=== PATIENT | male | born 1955 | race Caucasian/White ===

== ENCOUNTER 2022-04-17 07:53 | Day surgery (SDC) | payer MEDICARE, MEDICAID ==
[~2022-04-17] VITALS: Ht 180.3 cm; Wt 100.6 kg
[2022-04-17] VITALS (11 sets, daily range): BP systolic 104–154; BP diastolic 60–94
[2022-04-17] MEDS ORDERED: diphenhydrAMINE 25mg capsule PO PRN (08:40)
[2022-04-17] MEDS ORDERED: normal saline 1,000 ML IV SCH (08:40)
[2022-04-17] MEDS ORDERED: TORS100T15 PO (08:49)
[2022-04-17] MEDS ORDERED: METO25TA6 PO (08:49)
[2022-04-17] MEDS ORDERED: INSU100I31 SQ (08:49)
[2022-04-17] MEDS ORDERED: FERR-119 PO (08:49)
[2022-04-17] MEDS ORDERED: INSU100I45 SQ (08:49)
[2022-04-17] MEDS ORDERED: CHOL500050 PO (08:49)
[2022-04-17] MEDS ORDERED: LEVO50TA8 PO (08:49)
[2022-04-17] MEDS ORDERED: GABA300C PO (08:49)
[2022-04-17] MEDS ORDERED: OMEP20CA16 PO (08:49)
[2022-04-17] MEDS ORDERED: DOCU240C PO (08:52)
[2022-04-17] MEDS ORDERED: ASPI-1071 PO (08:52)
[2022-04-17 09:18] LABS: BASOPHILS # (AUTO) 0.1 X10'3 (0-0.2); BASOPHILS % (AUTO) 1.2 % (0-1); EOSINOPHILS # (AUTO) 0.3 X10'3 (0-0.9); EOSINOPHILS % (AUTO) 3.7 % (0-6); HEMATOCRIT 39.5 % (42.0-52.0); HEMOGLOBIN 13.8 g/dl (14.0-17.9); LYMPHOCYTES # (AUTO) 2.3 X10'3 (1.1-4.8); LYMPHOCYTES % (AUTO) 27.4 % (21-51); MEAN CORPUSCULAR HEMOGLOBIN 27.7 PG (27.0-31.0); MEAN CORPUSCULAR VOLUME 79.2 FL (78-98); MEAN PLATELET VOLUME 7.5 FL (7.4-10.4); MONOCYTES # (AUTO) 0.4 X10'3 (0-0.9); MONOCYTES % (AUTO) 4.7 % (2-12); NEUTROPHILS # (AUTO) 5.4 X10'3 (1.8-7.7); PLATELET COUNT 262 X10'3 (140-440); RED BLOOD COUNT 4.99 X10'6 (4.70-6.10); RED CELL DISTRIBUTION WIDTH 14.1 % (11.5-14.5); WHITE BLOOD COUNT 8.5 X10'3 (4.5-11.0)
[2022-04-17 09:44] LABS: ALBUMIN 2.2 G/DL (3.4-5.0); BLOOD UREA NITROGEN 71 MG/DL (7-18); BUN/CREATININE RATIO 25.2 (5.4-32.0); CREATININE 2.82 MG/DL (0.60-1.10); MAGNESIUM 1.9 MG/DL (1.5-2.4); TOTAL CARBON DIOXIDE 24.9 MMOL/L (24-32); eGFR 23 ML/MIN
[2022-04-17 09:56] LABS: SODIUM 126 MMOL/L (135-145)
[2022-04-17 09:57] LABS: ANION GAP 12 (8-16); CHLORIDE 89 MMOL/L (99-107); POTASSIUM 4.2 MMOL/L (3.5-5.1)
[2022-04-17 09:58] LABS: GLUCOSE 501 MG/DL (70-104)
[2022-04-17] MEDS ORDERED: dextrose 50%-water 50ml dispensing syringe IV PRN ×2 (11:00)
[2022-04-17] MEDS ORDERED: DEXTROSE 15 GM of carb/4 tabs (each vial/BOTTLE has 4 tablets) PO PRN ×2 (11:00)
[2022-04-17] MEDS ORDERED: insulin Lispro (HumaLOG) vial - multi-dose SQ SCH ×2 (11:00)
[2022-04-17] MEDS ORDERED: glucagon, human recombinant 1mg kit SUBCUT PRN (11:00)
--- NOTE | 2022-04-17 11:00 | NUR ---
New order from Dr. Monzon for 25 units of humalog. IV fluids @ 500 ml/hour and add hyperglycemic protocol.
[2022-04-17] MEDS ORDERED: nitroGLYCERIN-Tridil 50MG/D5W 0 ML IV ONE (11:15)
[2022-04-17] MEDS ORDERED: fentaNYL/PF 50MCG/1 ML 2ML syringe ONE (11:16)
[2022-04-17] MEDS ORDERED: verapamil 2.5 mg/ml inj IV ONE (11:16)
[2022-04-17] MEDS ORDERED: heparin 1,000unit/ml 10ml vial 10 ML ONE (11:16)
[2022-04-17] MEDS ORDERED: midazolam 1 mg/ML 2ml injection ONE (11:16)
[2022-04-17] MEDS ORDERED: LIDOcaine 1% 30ml preserv. free vial ONE (11:16)
[2022-04-17] MEDS ORDERED: iohexol 350MG/ML 100ml bottle IV ONE (11:16)
[2022-04-17] MEDS ORDERED: ondansetron/PF 4mg/2ml inj IV PRN (13:15)
[2022-04-17] MEDS ORDERED: normal saline 1000ml 1,000 ML IV SCH (13:15)
[2022-04-17] MEDS ORDERED: HYDROcodone/acetaminophen 5mg/325mg tablet PO PRN (13:20)
[2022-04-17] MEDS ORDERED: HYDROcodone/acetaminophen 10/325mg tab PO PRN (13:20)
[2022-04-17] MEDS ORDERED: insulin glargine (Lantus) pen - multi-dose SQ SCH (21:00)
== END 2022-04-17 18:10 | disposition home or self-care (01) ==
LOC: SSTAY O 07:53
PROVIDERS: ATTEND Internal Medicine Cardiovascular Disease
DX: R06.02 Shortness of breath (principal); I35.0 Nonrheumatic aortic (valve) stenosis; I27.0 Primary pulmonary hypertension; I11.0 Hypertensive heart disease with heart failure; I50.9 Heart failure, unspecified; J44.9 Chronic obstructive pulmonary disease, unspecified; E66.9 Obesity, unspecified; Z68.30 Body mass index [BMI] 30.0-30.9, adult; E11.9 Type 2 diabetes mellitus without complications; E78.5 Hyperlipidemia, unspecified; G47.30 Sleep apnea, unspecified; Z91.014 Allergy to mammalian meats; Z88.0 Allergy status to penicillin; Z91.018 Allergy to other foods; Z88.5 Allergy status to narcotic agent; Z79.899 Other long term (current) drug therapy
CPT/HCPCS: 36415; 80048; 82948; 83735; 85025; 85610; 93005; 93460; 99152; 99153; C1751; C1760; C1769; C1894; J1644; J1815; J2250; J3010; J3490; J7030; Q0163; Q9967; A4620; A6258; A6402; A6449